=== PATIENT | male | born 1980 | race Caucasian/White ===

== ENCOUNTER 2019-01-24 09:29 | Emergency (ER) | payer OTHER ==
[~2019-01-24] VITALS: Ht 172.7 cm; Wt 99.8 kg
[2019-01-24] MEDS ORDERED: cloNIDine HCL 0.1 MG TABLET PO ONE (10:45)
[2019-01-24] MEDS ORDERED: HYDROcodone/APAP 5/325MG 1 TAB TABLET PO ONE (10:45)
[2019-01-24] MEDS ORDERED: FLUORESCEIN OPHTH TEST STRIP. OS ONE (10:45)
[2019-01-24] MEDS ORDERED: TETRACAINE 0.5% OPHTH SOLUTION 4ML BOTTLE. OS ONE (10:45)
[2019-01-24 11:09] VITALS: BP 159/97
--- NOTE | 2019-01-24 11:21 | RAD ---
Examination: CT ORBITS WO CONTRAST History: Left eye injury with a stick. Pain. Comparison/Correlation: CT head without contrast 10/01/2017 performed at [facility] Findings: Axial images of the orbits were obtained without contrast. Sagittal and coronal reformatted images were provided. Globes and optic nerves are unremarkable. Extra ocular muscles are unremarkable. There are no radiopaque foreign bodies. No depressed fracture. Patchy opacification of the paranasal sinuses identified. Mastoid air cells are clear. Temporomandibular joints are unremarkable. Impression: Chronic paranasal pansinusitis. No depressed fracture, radiopaque foreign body, or other suspicious acute process. PQRS Compliance Statement: One or more of the following individualized dose reduction techniques were utilized for this examination: 1. Automated exposure control 2. Adjustment of the mA and/or kV according to patient size 3. Use of iterative reconstruction technique Electronically signed by: Brett Reis MD (01/24/2019 11:18 AM) [facility]
[2019-01-24] MEDS ORDERED: TRAM-48 PO (12:10)
[2019-01-24] MEDS ORDERED: OFLO5DRO LEFTEYE (12:10)
--- NOTE | 2019-01-24 12:10 | PHYS DOC ---
Past Medical History Past Medical History: Hypertension Additional Past Medical Histor: blood clots Additional Past Surgical Histo: gastric sleeve Alcohol Use: Occasionally Drug Use: None Adult General Chief Complaint Chief Complaint: EYE PROBLEMS HPI HPI Patient is a 38 year old male patient with history of hypertension who presents with complaining of left eye injury. Patient states he had injury to left eye with wood stick to his left eye that happened 3 days ago and since then had pain and photophobia and tearing and unable to open his eyes but denies loss of vision. Patient stated his pain as 10 of 10 and denies other injuries, nausea and vomiting, headache. Patient states he did not take his blood pressure medication today. Patient had blood pressure of more than 200s at arrival to ER. Review of Systems Review of Systems Constitutional: Denies fever or chills [] Eyes: Denies change in visual acuity, reports redness, eye pain [] HENT: Denies nasal congestion or sore throat [] Respiratory: Denies cough or shortness of breath [] Cardiovascular: No additional information not addressed in HPI [] GI: Denies abdominal pain, nausea, vomiting, bloody stools or diarrhea [] : Denies dysuria or hematuria [] Musculoskeletal: Denies back pain or joint pain [] Integument: Denies rash or skin lesions [] Neurologic: Denies headache, focal weakness or sensory changes [] Endocrine: Denies polyuria or polydipsia [] All other systems were reviewed and found to be within normal limits, except as documented in this note. Current Medications Current Medications Current Medications Medications (Trade) Dose Ordered Sig/Acosta Start Time Stop Time Status Last Admin Dose Admin Acetaminophen/ Hydrocodone Bitart (Lortab 5/325) 1 tab 1X ONCE 01/24/19 10:45 01/24/19 10:48 DC 01/24/19 11:10 1 TAB Clonidine HCl (Catapres) 0.2 mg 1X ONCE 01/24/19 10:45 01/24/19 10:48 DC 01/24/19 11:09 0.2 MG Fluorescein Sodium (Ful-Violeta) 1 strip 1X ONCE 01/24/19 10:45 01/24/19 10:48 DC 01/24/19 11:10 1 STRIP Tetracaine HCl (Tetracaine) 1 drop 1X ONCE 01/24/19 10:45 01/24/19 10:48 DC 01/24/19 11:10 1 DROP Allergies Allergies Allergies Coded Allergies Type Severity Reaction Last Updated Verified Iodinated Contrast Media Allergy Intermediate HIVES 01/24/19 Yes Physical Exam Physical Exam Constitutional: Wellnourished, moderate distress, non-toxic appearance. [] HENT: Normocephalic, atraumatic, bilateral external ears normal, oropharynx moist, no oral exudates, nose normal. [] Eyes: Patient is not cooperative for exam of right and left eye and does not open his eye well even after applying tetracaine. PERRLA, EOMI, conjunctivae erythema and small area of hemorrhage in lateral of conjunctiva, no discharge, no hyphema, fluorescein test shows corneal uptake, no tenderness of the globe Neck: Normal range of motion, no tenderness, supple, no stridor. [] Cardiovascular:Heart rate regular rhythm, no murmur [] Lungs & Thorax: Bilateral breath sounds clear to auscultation [] Neurologic: Alert and oriented X 3, normal motor function, normal sensory function, no focal deficits noted. [] Psychologic: Affect (, judgement normal, mood normal. [] Current Patient Data Vital Signs Vital Signs Date Time Temp Pulse Resp B/P (MAP) Pulse Ox O2 Delivery O2 Flow Rate FiO2 01/24/19 11:10 16 100 Room Air 01/24/19 11:09 108 159/97 01/24/19 09:55 98.4 98.4 EKG EKG [] Radiology/Procedures Radiology/Procedures [][facility] [address] [place] [address] IMAGING REPORT Signed PATIENT: MIRANDA MESA PSYCHIATRIC: [id number] : 1980 LOCATION: ER AGE: 38 SEX: M EXAM STATUS: REG ER ORD. PHYSICIAN: LIZZETTE CALDERON MD REASON: left eye injury with stick PROCEDURE: CT ORBITS WO CONTRAST Examination: CT ORBITS WO CONTRAST History: Left eye injury with a stick. Pain. Comparison/Correlation: CT head without contrast 10/01/2017 performed at [facility] Findings: Axial images of the orbits were obtained without contrast. Sagittal and coronal reformatted images were provided. Globes and optic nerves are unremarkable. Extra ocular muscles are unremarkable. There are no radiopaque foreign bodies. No depressed fracture. Patchy opacification of the paranasal sinuses identified. Mastoid air cells are clear. Temporomandibular joints are unremarkable. Impression: Chronic paranasal pansinusitis. No depressed fracture, radiopaque foreign body, or other suspicious acute process. PQRS Compliance Statement: One or more of the following individualized dose reduction techniques were utilized for this examination: 1. Automated exposure control 2. Adjustment of the mA and/or kV according to patient size 3. Use of iterative reconstruction technique Electronically signed by: Brett Bass MD (01/24/2019 11:18 AM) [facility] DICTATED and SIGNED BY: BRETT BASS MD DATE: 01/24/19 1118 Course & Med Decision Making Course & Med Decision Making Pertinent Imaging studies reviewed. (See chart for details) Evaluation of patient in ER showed 38-year-old male patient with injury to left eye for 2 days with photophobia and erythema and tearing and pain. Patient had corneal abrasion and subconjunctival hemorrhage with unremarkable CT of the globe. 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 Patient had elevation of blood pressure and treated with clonidine with improvement of blood pressure was advised to continue blood pressure home medication.discharge: I've spoken with the patient and/or caregivers. I've explained the patient's condition, diagnosis and treatment plan based on information available to me at this time. I've answered the patient's and/or caregivers questions and addressed any concerns. The patient and/or caregivers have a good understanding the patient's diagnosis, condition and treatment plan as can be expected at this point. Vital signs have been stabilized. The patient's condition is stable for discharge from the emergency department. The patient will pursue further outpatient evaluation with her primary care provider or other designated consulting physician as outlined in the discharge instructions. Patient and/or caregivers are agreeable to this plan of care and follow-up instructions have been explained in detail. The patient and/or caregivers have received these instructions in written format and expressed understanding of these discharge instructions. The patient and her caregivers are aware that if any significant change in condition or worsening of symptoms should prompt him to immediately return to this of the closest emergency department. If an emergent department is not readily available I would encourage him to call 911. Román Disclaimer Dragon Disclaimer This electronic medical record was generated, in whole or in part, using a voice recognition dictation system. Departure Departure Impression: Primary Impression: Left corneal abrasion Additional Impressions: Subconjunctival hemorrhage Left eye injury Photophobia Accelerated hypertension Disposition: HOME, SELF-CARE (at 1207) Condition: IMPROVED Referrals: NO PCP (PCP) Patient Instructions: Eye - Corneal Abrasion, Eye Injury-Brief, Form - Blood Pressure Record Sheet, How to Take Your Blood Pressure, [id number], Managing Your High Blood Pressure, Subconjunctival Hemorrhage Additional Instructions: Continue home blood pressure medication Follow-up with trolley car overhauler in one or 2 days Return to ER if not getting better Scripts Tramadol Hcl (ULTRAM) 50 Mg Tablet 50 MG PO Q6HRS PRN for PAIN, #14 TAB 0 Refills Prov: LIZZETTE CALDERON MD 01/24/19 Ofloxacin (OCUFLOX) 5 Ml Drops 2 DROP LEFTEYE Q6HRS for 7 Days, #1 BOTTLE Prov: LIZZETTE CALDERON MD 01/24/19 Problem Qualifiers Primary Impression: Left corneal abrasion Encounter type: subsequent encounter Qualified Codes: S05.02XD - Injury of conjunctiva and corneal abrasion without foreign body, left eye, subsequent encounter Additional Impressions: Subconjunctival hemorrhage Laterality: left Qualified Codes: H11.32 - Conjunctival hemorrhage, left eye Left eye injury Encounter type: initial encounter Qualified Codes: S05.92XA - Unspecified injury of left eye and orbit, initial encounter LIZZETTE CALDERON MD Jan 24, 2019 12:10
== END 2019-01-24 12:20 | disposition home or self-care (01) ==
LOC: ER 09:29
DX: S05.02XA Injury of conjunctiva and corneal abrasion without foreign body, left eye, initial encounter (principal); H11.32 Conjunctival hemorrhage, left eye; I10 Essential (primary) hypertension; Z91.041 Radiographic dye allergy status; X58.XXXA Exposure to other specified factors, initial encounter; Y93.89 Activity, other specified; Y92.89 Other specified places as the place of occurrence of the external cause; Y99.8 Other external cause status
CPT/HCPCS: 70480; 99284-25